=== PATIENT | male | born 1985 | race Caucasian/White ===

== ENCOUNTER 2016-09-23 03:22 | Emergency (ER) | payer BC ==
[2016-09-23] MEDS ORDERED: MORPHINE SULFATE 10 MG/ML INJ IV ONE (04:14)
[2016-09-23] MEDS ORDERED: ONDANSETRON HCL INJ/PF 4 MG/2 ML SDV IV ONE (04:14)
[2016-09-23] MEDS ORDERED: KETOROLAC TROMETHAMINE INJ/PF 30 MG/1 ML SDV IV ONE (04:14)
[2016-09-23] MEDS ORDERED: NORMAL SALINE 1000 ML 1,000 ML IV ONE (04:14)
--- NOTE | 2016-09-23 04:15 | ER Document Report ---
ED GI/ - General Chief Complaint: Low Back Pain Stated Complaint: BACK PAIN,PAINFUL URINATION Time seen by provider: 04:15 Notes: Patient is a 31-year-old male that comes emergency department with chief complaint of sharp left flank pain that radiates to his left lower abdomen, symptoms woke him suddenly in the middle of the night tonight. Patient denies history of kidney stones, he states that when he urinates he has a pain up in his left abdomen, he denies any discharge, exposure to STD, injury. He denies any fever or chills. He denies any nausea or vomiting. He denies any daily medications, surgeries, or past medical history. TRAVEL OUTSIDE OF THE [place] IN LAST 30 DAYS: No - Related Data Allergies/Adverse Reactions: No Known Allergies Allergy (Verified 09/23/16 03:34) Past Medical History - General Information source: Patient - Social History Smoking Status: Current Every Day Smoker Chew tobacco use (# tins/day): No Frequency of alcohol use: None Drug Abuse: None Lives with: Family Family History: Reviewed & Not Pertinent Patient has suicidal ideation: No Patient has homicidal ideation: No - Medical History Medical History: Negative Renal/ Medical History: Denies: Hx Peritoneal Dialysis Past Surgical History: Reports: Hx Orthopedic Surgery - Immunizations Immunizations up to date: Yes Hx Diphtheria, Pertussis, Tetanus Vaccination: Yes Review of Systems - Review of Systems Constitutional: No symptoms reported EENT: No symptoms reported Cardiovascular: No symptoms reported Respiratory: No symptoms reported Gastrointestinal: See HPI Genitourinary: See HPI Male Genitourinary: No symptoms reported Musculoskeletal: No symptoms reported Skin: No symptoms reported Hematologic/Lymphatic: No symptoms reported Neurological/Psychological: No symptoms reported Physical Exam - Vital signs Vitals: Temp Pulse Resp BP Pulse Ox 97.4 F 95 18 135/81 H 97 09/23/16 03:39 09/23/16 03:39 09/23/16 03:39 09/23/16 03:39 09/23/16 03:39 Interpretation: Normal - General General appearance: Alert, Anxious In distress: Mild - Patient sitting up on the edge the bed, appears to be somewhat uncomfortable, no severe distress - HEENT Head: Normocephalic, Atraumatic Eyes: Normal Conjunctiva: Normal Extraocular movements intact: Yes Eyelashes: Normal Pupils: PERRL Nasal: Normal Mouth/Lips: Normal Mucous membranes: Normal Pharynx: Normal Neck: Normal - Respiratory Respiratory status: No respiratory distress Chest status: Nontender Breath sounds: Normal. No: Decreased air movement, Wheezing Chest palpation: Normal - Cardiovascular Rhythm: Regular. No: Tachycardia Heart sounds: Normal auscultation, S1 appreciated, S2 appreciated Murmur: No - Abdominal Inspection: Normal Distension: No distension Bowel sounds: Normal Tenderness: Tender - There is mild tenderness in the mid to left lower abdomen, there is no guarding, abdomen soft and benign otherwise Organomegaly: No organomegaly - Back Back: Tender - Tender just below the CVA area on the left flank - Extremities General upper extremity: Normal inspection, Nontender, Normal ROM, Normal strength General lower extremity: Normal inspection, Nontender, Normal ROM, Normal strength - Neurological Neuro grossly intact: Yes Cognition: Normal Orientation: AAOx4 [place] Coma Scale Eye Opening: Spontaneous [place] Coma Scale Verbal: Oriented [place] Coma Scale Motor: Obeys Commands [place] Coma Scale Total: 15 Speech: Normal Cranial nerves: Normal Cerebellar coordination: Normal Motor strength normal: LUE, RUE, LLE, RLE 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 To patient's presentation of left flank pain to his left lower abdomen suggestive of a kidney stone especially with initial discomfort, recommended CAT scan imaging to further evaluate this, patient is asymptomatic after medications, he is requesting to leave, he states that he has to go home to take care of his children and cannot stay for any further evaluation. Vital signs are stable, patient is well- appearing, workup is unremarkable, recommended that patient follow with primary care and return if he develops concerning worsening symptoms including fever, severe pain, uncontrolled vomiting, etc. Patient states understanding and agreement. - Vital Signs Vital signs: Temp Pulse Resp BP Pulse Ox 97.6 F 92 16 132/82 H 96 09/23/16 06:00 09/23/16 06:00 09/23/16 06:00 09/23/16 06:00 09/23/16 06:00 - Laboratory Result Diagrams: 09/23/16 04:49 09/23/16 04:49 Laboratory results interpreted by me: 09/23/16 04:49 Seg Neutrophils % 41.4 L Discharge - Discharge Clinical Impression: Flank pain Abdominal pain Qualifiers: Abdominal location: unspecified location Qualified Code(s): R10.9 - Unspecified abdominal pain Condition: Stable Disposition: HOME, SELF-CARE Additional Instructions: Your workup and symptoms are nonspecific, you might have kidney stone, this could be muscular, it could be another source. I recommend taking naproxen as directed if needed, hydrating, and resting. Follow-up with primary care. Return to emergency department for any concerning worsening symptoms including vomiting, fever, severe pain, etc. Prescriptions: RX: Naproxen 500 mg PO BID PRN #20 tablet PRN Reason: Forms: Return to Work
[2016-09-23 05:11] LABS: ABSOLUTE EOSINOPHILS # (AUTO) 0.1 10^3/uL (0.0-0.6); ABSOLUTE LYMPHOCYTES (AUTO) 2.3 10^3/uL (0.5-4.7); ABSOLUTE MONOCYTES (AUTO) 0.6 10^3/uL (0.1-1.4); ABSOLUTE NEUT (AUTO) 2.2 10^3/uL (1.7-8.2); BASOPHILS % (AUTO) 0.8 % (0-2); EOSINOPHILS % (AUTO) 2.5 % (0-6); HEMATOCRIT 46.1 % (37.9-51.0); HEMOGLOBIN 15.1 g/dL (13.5-17.0); HGB HCT DIFFERENCE -0.8; LYMPHOCYTES % (AUTO) 43.9 % (13-45); MEAN CORPUSCULAR HEMOGLOBIN 29.7 pg (27.0-33.4); MEAN CORPUSCULAR HGB CONC 32.9 g/dL (32.0-36.0); MEAN CORPUSCULAR VOLUME 90 fl (80-97); MONOCYTES % (AUTO) 11.4 % (3-13); SEGMENTED NEUTROPHILS % (AUTO) 41.4 % (42-78); WHITE BLOOD COUNT 5.3 10^3/uL (4.0-10.5)
[2016-09-23 05:12] LABS: APPEARANCE,URINE CLEAR; BILIRUBIN,URINE NEGATIVE (NEGATIVE); GLUCOSE, URINE NEGATIVE (NEGATIVE); KETONES,URINE NEGATIVE (NEGATIVE); LEUKOCYTE ESTERASE,URINE NEGATIVE (NEGATIVE); NITRITE,URINE NEGATIVE (NEGATIVE); PROTEIN,URINE NEGATIVE (NEGATIVE); URINE SPECIFIC GRAVITY 1.029; UROBILINOGEN,URINE NEGATIVE mg/dL (<2.0)
[2016-09-23 05:17] LABS: ANION GAP 10 (5-19); BLOOD UREA NITROGEN 19 mg/dL (7-20); CALCIUM 9.8 mg/dL (8.4-10.2); CARBON DIOXIDE 28 mmol/L (22-30); CHLORIDE 104 mmol/L (98-107); CREATININE RESULT 0.95 mg/dL (0.52-1.25); GLUCOSE 83 mg/dL (75-110); POTASSIUM 4.1 mmol/L (3.6-5.0); SODIUM 142.3 mmol/L (137-145)
[2016-09-23 06:02] VITALS: BP 132/82
== END 2016-09-23 06:00 | disposition home or self-care (01) ==
LOC: ER 03:22
DX: R10.9 Unspecified abdominal pain (principal); R30.0 Dysuria; F17.200 Nicotine dependence, unspecified, uncomplicated
CPT/HCPCS: 99283; 96361; 96374; 96375; 36415; 85025; 80048; 81001; J1885; J2270; J2405; J7030

== ENCOUNTER 2016-10-26 13:33 | Emergency (ER) | payer BC ==
--- NOTE | 2016-10-26 14:00 | ER Document Report ---
ED Medical Screen (RME) - General Stated Complaint: FALL/BACK PAIN Notes: 31 yo male c/o pain to left lower back pain with radiculopathy to left leg x 1 day. no paresthesias. coming off machine and landed heavy on left leg. no fever. no bladder or bowel change. + hx/o similar pain TRAVEL OUTSIDE OF THE [place] IN LAST 30 DAYS: No - Related Data Allergies/Adverse Reactions: No Known Allergies Allergy (Verified 10/26/16 13:56) Past Medical History Renal/ Medical History: Denies: Hx Peritoneal Dialysis Past Surgical History: Reports: Hx Orthopedic Surgery - Immunizations Immunizations up to date: Yes Hx Diphtheria, Pertussis, Tetanus Vaccination: Yes Physical Exam - Vital signs Vitals: Temp Pulse Resp BP Pulse Ox 97.6 F 96 18 146/99 H 98 10/26/16 13:37 10/26/16 13:37 10/26/16 13:37 10/26/16 13:37 10/26/16 13:37 Course - Vital Signs Vital signs: Temp Pulse Resp BP Pulse Ox 97.6 F 96 18 146/99 H 98 10/26/16 13:37 10/26/16 13:37 10/26/16 13:37 10/26/16 13:37 10/26/16 13:37
--- NOTE | 2016-10-26 15:15 | ER Document Report ---
HPI - HPI Patient complains to provider of: back pain Onset: This afternoon Onset/Duration: Sudden Quality of pain: Achy Severity: Severe Pain Level: 4 Context: Patient presents to the emergency department with complaints of left lower back pain. He reports he jumped off his machinery at work and angeli his back. Patient reports he has a history of back pain. He denies urinary or bowel incontinence or retention. He denies numbness or tingling. Patient reports he recently moved to [facility] and needs a primary care provider.Reports pain is on the lower left side of his back and it does not go down his leg. Associated Symptoms: None Exacerbated by: Denies Relieved by: Denies Similar symptoms previously: Yes Recently seen / treated by doctor: No - DERM Skin Color: Normal Past Medical History - General Information source: Patient - Social History Smoking Status: Smoker,Current Status Unk Cigarette use (# per day): No Frequency of alcohol use: None Drug Abuse: None Family History: Reviewed & Not Pertinent Patient has suicidal ideation: No Patient has homicidal ideation: No - Medical History Medical History: Negative Renal/ Medical History: Denies: Hx Peritoneal Dialysis Past Surgical History: Reports: Hx Orthopedic Surgery - Immunizations Immunizations up to date: Yes Hx Diphtheria, Pertussis, Tetanus Vaccination: Yes Vertical Provider Document - CONSTITUTIONAL Agree With Documented VS: Yes Exam Limitations: No Limitations General Appearance: WD/WN, No Apparent Distress - nontoxic looking - INFECTION CONTROL TRAVEL OUTSIDE OF THE [place] IN LAST 30 DAYS: No - HEENT HEENT: Atraumatic, Normocephalic - NECK Neck: Normal Inspection, Supple. negative: Lymphadenopathy-Left, Lymphadenopathy-Right - RESPIRATORY Respiratory: Breath Sounds Normal, No Respiratory Distress O2 Sat by Pulse Oximetry: 98 - CARDIOVASCULAR Cardiovascular: Regular Rate - GI/ABDOMEN Gastrointestinal: Abdomen Soft, Abdomen Non-Tender - BACK Back: Normal Inspection - no obvious deformity, good distal movement and sensation no weakness complains of left-sided muscular pain. no erythema/no swelling/no ecchymosis - MUSCULOSKELETAL/EXTREMETIES Musculoskeletal/Extremeties: JEREMI HURST - NEURO Level of Consciousness: Awake, Alert, Appropriate Motor/Sensory: No Motor Deficit - DERM Integumentary: Warm, Dry Adult Front & Back Diagram: 1 - c/o pain Course - Re-evaluation Re-evalutation: 10/26/16 The patient presents with low back pain without signs of spinal cord compression , cauda equine syndrome, infection, aneurysm, or other serious etiology. The patient is neurologically intact. The patient has good distal movement and sensation, denies urinary or bowel incontinence/retention. Given the extremely low risk of these diagnosis, further testing and evaluation for these possibilities does not appear to be indicated at this time. The patient has been instructed to return if the symptoms worsen or change in anyway. - Vital Signs Vital signs: Temp Pulse Resp BP Pulse Ox 97.6 F 96 18 146/99 H 98 10/26/16 13:37 10/26/16 13:37 10/26/16 13:37 10/26/16 13:37 10/26/16 13:37 Discharge - Discharge Clinical Impression: Back pain Qualifiers: Back pain location: low back pain Chronicity: acute Back pain laterality: left Sciatica presence: without sciatica Qualified Code(s): M54.5 - Low back pain Condition: Stable Disposition: HOME, SELF-CARE Instructions: Ice Packs ([facility]), Warm Packs ([facility]), Muscle Strain ([facility]), Anti- Inflammatory Medication ([facility]), Muscle Relaxers ([facility]), Family Physicians / Practices Additional Instructions: *You have been evaluated for low back left side muscular pain *Take medication as prescribed *Rest/Ice packs- heat packs as directed *Follow up with a primary care provider for recheck within one week *Return to ED for worsening condition, changes, needs Prescriptions: Cyclobenzaprine HCl [Flexeril 10 Mg Tablet] 10 mg PO TID #30 tablet Naproxen 500 mg PO BID #20 tablet Forms: Return to Work
[2016-10-26 15:36] VITALS: BP 144/62
== END 2016-10-26 15:30 | disposition home or self-care (01) ==
LOC: ER 13:33
DX: M54.5 Low back pain (principal)
CPT/HCPCS: 99283